=== PATIENT | male | born 1990 | race Caucasian/White ===

== ENCOUNTER → 2018-02-05 | Outpatient (CLI) | payer MEDICARE ==
[~2018-02-05] MED LIST: BUSPAR5 MG PO; CELEXA40 MG PO; KEPPRA1000 MG PO; KEPPRA750 MG PO; PROTONIX20 MG PO; TOPAMAX50 MG PO
== END ==
LOC: COL.CARD 10:00
DX: G40.909 Epilepsy, unspecified, not intractable, without status epilepticus (principal); R94.01 Abnormal electroencephalogram [EEG]

== ENCOUNTER 2019-01-22 23:45 | Emergency (ER) | payer MEDICARE ==
[~2019-01-22] VITALS: Ht 182.9 cm; Wt 98.2 kg
[~2019-01-22 23:45] MED LIST changes: +AMITIZA24 MCG PO; +AMITRIPTYLINE H50 M1 PO; +CYMBALTA 30MG30 MG PO; +ENULOSE10 GM/151 PO; +FLONASEALLERGY NS; +IMITREX100 MG PO; +LACTULOSE10 GM/153 PO; +LAMICTAL 100MG100 MG PO; +NAPROSYN500 MG PO; +NEURONTIN300 MG/CAP PO; +NORVASC 5MG5 MG/TAB PO; +PRILOSEC 20MG20 MG PO; +ZOFRAN 4MG T4 MG/TAB PO
[2019-01-22 23:52] VITALS: BP 147/88; TEMP 98.7
[2019-01-23 01:29] LABS: BASO # 0.1 (0.0-0.2); BASO % 0.4 % (0.0-2.0); EOS # 0.1 (0.0-0.7); EOS % 0.9 % (0-4.0); GRAN # 7.3 (1.4-6.5); GRAN % 62.9 % (42.2-75.2); HEMATOCRIT 49.2 % (42.0-52.0); HEMOGLOBIN 17.3 g/dl (13.5-18.0); LYMPH # 3.1 (1.2-3.4); LYMPH % 26.6 % (20.0-51.0); MEAN CELL VOLUME 84 fl (80.0-100.0); MEAN CORPUSCULAR HEMOGLOBIN 30 pg (27.0-31.0); MEAN CORPUSCULAR HGB CONC 35 g/dl (33.0-37.0); MEAN PLATELET VOLUME 10.1 fl (7.4-10.4); MONO % 8.9 % (1.7-9.3); PLATELET COUNT 353 K/mm3 (130-400); RED BLOOD COUNT 5.86 M/mm3 (4.20-5.60); REDCELL DISTRIBUTION WIDTH-CV 12.5 % (11.5-14.5)
[2019-01-23 01:40] LABS: ALBUMIN 4.6 gm/dL (3.5-5.0); BILIRUBIN,TOTAL 0.5 mg/dL (0.0-1.0); CALCIUM 9.8 mg/dL (8.4-10.2); CREATININE, serum 0.91 mg/dL (0.66-1.25); POTASSIUM 3.9 mmol/L (3.4-5.0)
[2019-01-23 01:56] LABS: PROLACTIN 12.5 ng/mL (3.7-17.9)
[2019-01-23 03:14] VITALS: PULSE 104
== END 2019-01-23 03:21 | disposition home or self-care (01) ==
LOC: COL.ER 23:45
PROVIDERS: Emergency Medicine
DX: R25.1 Tremor, unspecified (principal); F17.210 Nicotine dependence, cigarettes, uncomplicated; G40.909 Epilepsy, unspecified, not intractable, without status epilepticus; Z90.89 Acquired absence of other organs
CPT/HCPCS: J2060; J7030